=== PATIENT | female | born 1975 | race Caucasian/White ===

== ENCOUNTER 2019-02-24 16:39 | Outpatient (REF) | payer MEDICAID, SELFPAY ==
[2019-02-24 21:15] LABS: COMMENT (LAB VIEW ONLY) 41.29 mg/dL
== END 2019-02-24 16:59 ==
LOC: NCHCN 16:39
PROVIDERS: PCP Family Medicine; Visit Provider Family Medicine
DX: E11.9 Type 2 diabetes mellitus without complications (principal)
CPT/HCPCS: 82043; 82570

== ENCOUNTER 2019-03-31 10:38 | Outpatient (REF) | payer MEDICAID, SELFPAY ==
[2019-03-31 21:19] LABS: Cholesterol 160 mg/dL (50-200); HDL Cholesterol 27 mg/dL (40-60); TSH (W/Ref FT4) 3.52 uIU/mL (0.358-3.74); Triglyceride 409 mg/dL (30-150)
[2019-03-31 21:48] LABS: LDL CHOLESTEROL 70 mg/dL (<100)
== END 2019-03-31 10:58 ==
LOC: NCHCN 10:38
PROVIDERS: PCP Family Medicine; Visit Provider Family Medicine
DX: E11.65 Type 2 diabetes mellitus with hyperglycemia (principal); E78.1 Pure hyperglyceridemia
CPT/HCPCS: 80061; 83721; 84443

== ENCOUNTER 2019-05-03 01:04 | Outpatient (CLI) | payer MEDICAID, SELFPAY ==
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
== END 2019-05-03 01:24 ==
PROVIDERS: PCP Family Medicine; Visit Provider Dietitian, Registered
DX: E11.9 Type 2 diabetes mellitus without complications (principal); Z79.4 Long term (current) use of insulin; Z71.3 Dietary counseling and surveillance
CPT/HCPCS: G0108

== ENCOUNTER 2019-05-10 15:15 | Outpatient (CLI) | payer MEDICAID, SELFPAY ==
--- NOTE | 2019-05-10 14:45 | DIABASSESS_ITS ---
DESCRIPTION/ASSESSMENT: Consuelo Velasquez presents for diabetes self management follow up. She has documented food and blood carranza gar for 1 week. Blood sugar before breakfast on day 1 - 215. Blood sugars since that morning 109-199, mostly less than 166. She is eating protein and vegetable or berries; occasional peanut butter crackers. She has dramatically improved her blood sugars although she states she is hungry all the time. She is frustrated she is not losing any weight and feels hungry much of the time. Continues to do the pool 4 times a day. INTERVENTION: Consuelo is congratulated for her hard work and glycemic results. Discussed food choices and challenges for limiting calories and carbohydrate. Discussed medication again as her limited food is not sustainable. Discussed benefits and risks of described medications and she is interested in the GLP` inhibitor with the best choice being Trulicity if covered by her insurance. In addition, she admits to missing night insulin doses. She may benefit from Tresiba which would hold her for a longer period and keep a steadier insulin dosing. She states she is also willing to take mealtime insulin. ACTION PLAN: Suggest Trulicity or other covered GLP1s. Also suggest Tresiba as a longer acting basal insulin to simplify medication management. She wishes to return after her PCP appointment 05/23/19. Individual DSME/T __1__ units billed No DM group education series being offered at this time.
== END 2019-05-10 15:35 ==
PROVIDERS: PCP Family Medicine; Visit Provider Dietitian, Registered
DX: E11.9 Type 2 diabetes mellitus without complications (principal); Z71.3 Dietary counseling and surveillance
CPT/HCPCS: G0108

== ENCOUNTER 2020-12-24 14:33 | Outpatient (REF) | payer SELFPAY ==
[2020-12-24 22:20] LABS: COMMENT (LAB VIEW ONLY) 29.19 mg/dL; Microalb ug/mg Crea 1129.5 ug/mg Cr
== END 2020-12-24 14:34 | disposition home or self-care (01) ==
LOC: NCHCN 14:33
PROVIDERS: PCP Family Medicine; Visit Provider Family Medicine
DX: E11.65 Type 2 diabetes mellitus with hyperglycemia (principal)
CPT/HCPCS: 82043; 82570

== ENCOUNTER 2021-01-22 22:50 | Outpatient (REF) | payer MEDICAID, SELFPAY ==
[2021-01-22 22:35] LABS: ALT 28 U/L (14-59); AST 13 U/L (15-37); Albumin 3.6 g/dL (3.4-5.0); Alkaline Phosphatase 96 U/L (46-116); Anion Gap 11.4 mmol/L (3-11); BUN 15 mg/dL (7-18); Bilirubin, Total 0.3 mg/dL (0.2-1.0); CO2 25.6 mmol/L (21.0-32.0); CREATININE 0.8 mg/dL (0.55-1.02); Calcium 9.1 mg/dL (8.5-10.1); Calculated LDL 75 mg/dL (<100); Chloride 101 mmol/L (98-107); Cholesterol 167 mg/dL (<200); Glucose 253 mg/dL (74-106); HDL Cholesterol 28 mg/dL (40-60); Potassium 4.5 mmol/L (3.5-5.1); Sodium 138 mmol/L (136-145); TSH 6.16 uIU/mL (0.36-3.74); Total Protein 7.1 g/dL (6.4-8.2); Triglyceride 323 mg/dL (<150)
== END 2021-01-22 22:51 | disposition home or self-care (01) ==
LOC: NCHCN 22:50
PROVIDERS: PCP Family Medicine; Visit Provider Family Medicine
DX: I10 Essential (primary) hypertension (principal); E11.65 Type 2 diabetes mellitus with hyperglycemia; E78.1 Pure hyperglyceridemia; E66.9 Obesity, unspecified
CPT/HCPCS: 80053; 80061; 84443

== ENCOUNTER 2021-04-01 09:52 | Outpatient (REF) | payer MEDICAID, SELFPAY ==
[2021-04-01 14:30] LABS: TSH 2.81 uIU/mL (0.36-3.74)
== END 2021-04-01 09:53 | disposition home or self-care (01) ==
LOC: NCHCN 09:52
PROVIDERS: PCP Family Medicine; Visit Provider Family Medicine
DX: E03.9 Hypothyroidism, unspecified (principal)
CPT/HCPCS: 84443

== ENCOUNTER 2022-05-13 13:08 | Outpatient (REF) | payer MEDICAID, SELFPAY ==
[2022-05-13 14:14] LABS: BUN 12 mg/dL (7-18); CREATININE 0.8 mg/dL (0.55-1.02); Calcium 8.9 mg/dL (8.5-10.1); Chloride 96 mmol/L (98-107); Glucose 457 mg/dL (74-106); Potassium 4.3 mmol/L (3.5-5.1); Sodium 134 mmol/L (136-145)
== END 2022-05-13 13:09 | disposition home or self-care (01) ==
LOC: NCHCN 13:08
PROVIDERS: PCP Family Medicine; Visit Provider Nurse Practitioner Family
DX: I10 Essential (primary) hypertension (principal)
CPT/HCPCS: 80048

== ENCOUNTER 2022-07-31 12:53 | Outpatient (REF) | payer MEDICAID, SELFPAY ==
[2022-07-31 14:54] LABS: Abs Immature Grans 0.07 10^3/uL (0.0-0.06); Absolute Basophil Count 0.07 10^3/uL (0.0-0.2); Absolute Eosinophil Count 0.25 10^3/uL (0.0-0.7); Absolute Lymphocyte Count 2.45 10^3/uL (1.2-3.4); Absolute Monocyte Count 0.98 10^3/uL (0.1-0.8); Absolute Neutrophil Count 4.82 10^3/uL (1.2-6.7); Basophils % 0.8; Eosinophils % 2.9; HCT 47.3 % (36.0-46.0); HGB 15.9 g/dL (11.2-15.7); Immature Grans % 0.8; Lymphocytes % 28.4; MCHC 33.6 % (32.0-36.0); MCV 89 fL (80-95); MPV 10.3 fL (8.0-11.0); Monocytes % 11.3; Neutrophils % 55.8; Platelet Count 300 10^3/uL (130-400); RDW-SD 44.9 fL; WBC 8.64 10^3/uL (4.4-10.8)
[2022-07-31 16:29] LABS: ALT 25 U/L (14-59); AST 13 U/L (15-37); Alkaline Phosphatase 96 U/L (46-116); Anion Gap 6.7 mmol/L (3-11); BUN 18 mg/dL (7-18); Bilirubin, Total 0.3 mg/dL (0.2-1.0); CO2 32.3 mmol/L (21.0-32.0); CREATININE 0.7 mg/dL (0.55-1.02); Calcium 8.8 mg/dL (8.5-10.1); Calculated LDL 50 mg/dL (<100); Chloride 101 mmol/L (98-107); Cholesterol 147 mg/dL (<200); Estimated GFR 108.62 (mL/min/1.73m2); Glucose 225 mg/dL (74-106); HDL Cholesterol 36 mg/dL (40-60); Potassium 4.4 mmol/L (3.5-5.1); Sodium 140 mmol/L (136-145); TSH (W/Ref FT4) 2.59 uIU/mL (0.36-3.74); Total Protein 7.6 g/dL (6.4-8.2); Triglyceride 308 mg/dL (<150); Vitamin B12 341 pg/mL (193-986)
[2022-07-31 16:31] LABS: Vitamin D 25 Total 21.5 ng/mL (30-100)
[2022-08-03 09:40] LABS: Hepatitis C Ab w Rflx HCV PCR Negative (Negative)
[2022-08-03 09:45] LABS: HIV-1/2 Ag & Ab Screen Negative (Negative)
== END 2022-07-31 12:54 | disposition home or self-care (01) ==
LOC: NCHCN 12:53
PROVIDERS: Nurse Practitioner Family; PCP Family Medicine; Visit Provider Family Medicine
DX: Z11.59 Encounter for screening for other viral diseases (principal); Z11.4 Encounter for screening for human immunodeficiency virus [HIV]
CPT/HCPCS: 80053; 80061; 82306; 86803; 87389; 82607; 84443; 85025

== ENCOUNTER 2022-08-04 12:04 | Outpatient (REF) | payer MEDICAID, SELFPAY ==
--- NOTE | 2022-08-04 11:50 | PAPFT_PTH ---
PATIENT: Consuelo Velasquez LOC: [facility]#:[id number] AGE/SX: 47/F ROOM: RE08/04/[address]: Barbara Gomes : 1975 BED: DIS: 08/04/2022 SPEC #: [id number] RECD: 08/05/22 18:41 STATUS: ИВАН REShar #: [id number] CRIS: 08/04/22 11:[address]: Barbara Gomes DEPT: [facility] Cytology RECD BY: Samantha Colon ENTERED: 08/05/22 18:41 SP TYPE: PAPFT OTHR DR: Keven Estrada Tissues: 1 - CX/ENDOCX FOR PAP SMEARS Procedures: PAP THIN PREP/UVM Screening HPV DNA PROBE Comments: (CHLAMYDIA/GC)
[2022-08-06 14:31] LABS: Chlamydia Result Negative (Negative); GC Result Negative (Negative)
== END 2022-08-04 12:05 | disposition home or self-care (01) ==
LOC: NCHCN 12:04
PROVIDERS: PCP Family Medicine; Visit Provider Family Medicine
DX: Z12.4 Encounter for screening for malignant neoplasm of cervix (principal); Z11.51 Encounter for screening for human papillomavirus (HPV); Z11.3 Encounter for screening for infections with a predominantly sexual mode of transmission
CPT/HCPCS: 87491; 87591; 88142; 87624

== ENCOUNTER 2023-03-22 17:19 | Outpatient (REF) | payer MEDICAID, SELFPAY ==
[2023-03-22 22:43] LABS: COMMENT (LAB VIEW ONLY) 22.91 mg/dL
== END 2023-03-22 17:20 | disposition home or self-care (01) ==
LOC: NCHCN 17:19
PROVIDERS: PCP Family Medicine; Visit Provider Family Medicine
DX: E11.8 Type 2 diabetes mellitus with unspecified complications (principal)
CPT/HCPCS: 82043; 82570

== ENCOUNTER 2023-06-16 21:23 | Outpatient (REF) | payer MEDICAID, SELFPAY ==
[2023-06-18 09:22] LABS: Hepatitis B Surface Ag Negative (Negative)
[2023-06-18 10:03] LABS: Hepatitis C Ab w Rflx HCV PCR Negative (Negative)
[2023-06-18 10:18] LABS: HIV-1/2 Ag & Ab Screen Negative (Negative)
[2023-06-18 10:37] LABS: Hep B Core Antibody Negative (Negative)
[2023-06-18 11:12] LABS: Syphilis Serology (RPR) Negative (Negative)
[2023-06-18 12:44] LABS: Chlamydia Result Negative (Negative); GC Result Negative (Negative)
== END 2023-06-16 21:24 | disposition home or self-care (01) ==
LOC: NCHCN 21:23
PROVIDERS: PCP Family Medicine; Visit Provider Family Medicine
DX: Z11.3 Encounter for screening for infections with a predominantly sexual mode of transmission (principal); Z11.4 Encounter for screening for human immunodeficiency virus [HIV]; Z11.59 Encounter for screening for other viral diseases; Z01.84 Encounter for antibody response examination
CPT/HCPCS: 86704; 86803; 87340; 87389; 87491; 87591; 86592

== ENCOUNTER 2024-08-18 16:31 | Outpatient (REF) | payer MEDICAID, SELFPAY ==
[2024-08-18 21:27] LABS: Anion Gap 7.2 mmol/L (3-11); BUN 14 mg/dL (7-18); CO2 30.8 mmol/L (21.0-32.0); CREATININE 0.8 mg/dL (0.55-1.02); Calcium 9.3 mg/dL (8.5-10.1); Calculated LDL 70 mg/dL (<100); Chloride 101 mmol/L (98-107); Cholesterol 163 mg/dL (<200); Glucose 101 mg/dL (74-106); HDL Cholesterol 36 mg/dL (40-60); Potassium 3.7 mmol/L (3.5-5.1); Sodium 139 mmol/L (136-145); TSH 7.47 uIU/mL (0.36-3.74); Triglyceride 288 mg/dL (<150)
== END 2024-08-18 16:32 | disposition home or self-care (01) ==
LOC: NCHCN 16:31
PROVIDERS: PCP Family Medicine; Visit Provider Family Medicine
DX: I10 Essential (primary) hypertension (principal); Z13.220 Encounter for screening for lipoid disorders; E03.9 Hypothyroidism, unspecified
CPT/HCPCS: 80048; 80061; 84443